=== PATIENT | male | born 1995 | race Two or more races ===

== ENCOUNTER 2017-10-31 03:11 | Emergency (ER) | payer MEDICAID, OTHER ==
[~2017-10-31] VITALS: Ht 185.4 cm; Wt 154.2 kg
[2017-10-31] MEDS ORDERED: Mylanta II UD 30ml ORAL ONE (04:00)
[2017-10-31] MEDS ORDERED: Lidocaine 2% Visc 15ml soln ORAL ONE (04:00)
--- NOTE | 2017-10-31 04:02 | Emergency Room Report ---
History of Present Illness General Chief Complaint: Abdominal Pain Source: Patient Present Illness HPI Is a 22-year-old male with no past medical history. He presents with chief complaint of epigastric pain. Onset for 24 hours now. On and off. His most recent pain been constant for about 4 hours. Worse with eating. Pain to the back. At its peak, pain is 10 out of 10. Now 6 out of 10. Not taking anything for it. Allergies: Coded Allergies: No Known Allergies (Unverified , 10/31/17) Patient History Past Medical History: none, see triage record, old chart reviewed Past Surgical History: none Pertinent Family History: none Social History: Denies: smoking Immunizations: other Reviewed Nursing Documentation: PMH: Agreed; PSxH: Agreed Nursing Documentation-PMH Past Medical History: No Stated History Review of Systems Eye: Denies: eye pain, blurred vision ENT: Denies: ear pain, nose congestion, throat swelling Respiratory: Denies: cough, shortness of breath Cardiovascular: Denies: chest pain, palpitations Gastrointestinal: Reports: abdominal pain, nausea, vomiting; Denies: diarrhea Musculoskeletal: Denies: back pain, joint pain Skin: Denies: rash Neurological: Denies: headache, numbness Endocrine: Denies: increased thirst, increased urine Hematologic/Lymphatic: Denies: easy bruising All Other Systems: negative except mentioned in HPI Physical Exam Vital Signs Date Time Temp Pulse Resp B/P (MAP) Pulse Ox O2 Delivery O2 Flow Rate FiO2 10/31/17 03:37 97.8 68 16 106/62 100 Room Air 97.9 vitals normal Sp02 EP Interpretation: reviewed, normal General Appearance: well appearing, no apparent distress, alert Head: normocephalic, atraumatic Eyes: bilateral eye PERRL, bilateral eye EOMI ENT: hearing grossly normal, normal pharynx Neck: full range of motion, supple, no meningismus Respiratory: chest non-tender, lungs clear, normal breath sounds Cardiovascular #1: regular rate, rhythm, no murmur Gastrointestinal: normal bowel sounds, non tender, no mass, no organomegaly, no bruit, non-distended Musculoskeletal: back normal, gait/station normal, normal range of motion Psychiatric: mood/affect normal Skin: warm/dry Medical Decision Making Diagnostic Impression: Primary Impression: Cholelithiasis Qualified Codes: K80.20 - Calculus of gallbladder without cholecystitis without obstruction Additional Impression: Abdominal pain Qualified Codes: R10.13 - Epigastric pain ER Course Patient presents with abdominal pain. My bedside ultrasound showed a large gallstone at the neck of the gallbladder. Negative Silver sign. No evidence of acute abdomen. No evidence of infection. No evidence of pancreatitis. We' ll discharge home. Lab Results Impression labs with abnormal LFTs Last Vital Signs Date Time Temp Pulse Resp B/P (MAP) Pulse Ox O2 Delivery O2 Flow Rate FiO2 10/31/17 03:37 97.8 68 16 106/62 100 Room Air 97.9 Status: improved Disposition: HOME, SELF-CARE Condition: Stable Scripts Omeprazole Magnesium (PRILOSEC OTC) 20 Mg Tablet. 20 MG ORAL DAILY, #30 TAB Prov: BULMARO DOS SANTOS M.D. 10/31/17 Hydrocodone/Acetaminophen 5-325* (HYDROCODONE/ACETAMINOPHEN 5-325*) 1 Each Tablet 1 TAB ORAL Q6H PRN for For Pain, #20 TAB 0 Refills Prov: BULMARO DOS SANTOS M.D. 10/31/17 Referrals: [facility],REFERRING (PCP) Additional Instructions: Follow-up your in 2-3 days if not better. You may knee referred to see a surgeon for gallstone. Return if worse. BULMARO DOS SANTOS M.D. Oct 31, 2017 04:02
[2017-10-31 04:10] VITALS: BP 106/62
[2017-10-31 04:27] LABS: BASOPHILS % (AUTO) 0.3 % (0.0-2.0); EOSINOPHILS % (AUTO) 0.7 % (0.0-3.0); HEMATOCRIT 41.9 % (42.0-52.0); HEMOGLOBIN 14.1 G/DL (14.2-18.0); LYMPHOCYTES % (AUTO) 13.6 % (20.0-45.0); MEAN CORPUSCULAR VOLUME 86 FL (80-99); MONOCYTES % (AUTO) 4.3 % (1.0-10.0); NEUTROPHILS % (AUTO) 81.1 % (45.0-75.0); PLATELET COUNT 298 K/UL (150-450); RED BLOOD COUNT 4.85 M/UL (4.70-6.10); RED CELL DISTRIBUTION WIDTH 10.2 % (11.6-14.8); WHITE BLOOD COUNT 9.9 K/UL (4.8-10.8)
[2017-10-31 04:38] LABS: ANION GAP 5 mmol/L (5-15); BLOOD UREA NITROGEN 13 mg/dL (7-18); CALCIUM 9.3 MG/DL (8.5-10.1); CARBON DIOXIDE 31 MMOL/L (21-32); CHLORIDE 104 MMOL/L (98-107); POTASSIUM 4.2 MMOL/L (3.5-5.1); SODIUM 140 MMOL/L (136-145)
[2017-10-31 04:49] LABS: ALANINE AMINOTRANSFERASE 246 U/L (12-78); ALBUMIN 4.1 G/DL (3.4-5.0); ALKALINE PHOSPHATASE 123 U/L (46-116); ASPARTATE AMINO TRANSFERASE 238 U/L (15-37); BILIRUBIN,TOTAL 1.2 MG/DL (0.2-1.0)
[2017-10-31 04:51] LABS: BILIRUBIN,DIRECT 0.8 MG/DL (0.0-0.3)
[2017-10-31] MEDS ORDERED: PRILOSEC OTC20 MG ORAL (05:10)
[2017-10-31] MEDS ORDERED: HYDROCODON-ACE1 EA15 ORAL (05:10)
[2017-10-31 05:18] VITALS: BP 145/61
[2017-10-31 05:20] VITALS: BP 145/61
== END 2017-10-31 05:20 | disposition home or self-care (01) ==
LOC: EMR 03:39
DX: K80.20 Calculus of gallbladder without cholecystitis without obstruction (principal)
CPT/HCPCS: 36415; 80053; 82248; 83690; 85025; 96374; 99284

== ENCOUNTER 2017-11-20 00:40 | Emergency (ER) | payer MEDICAID, OTHER ==
[~2017-11-20] VITALS: Ht 182.9 cm; Wt 117.9 kg
[~2017-11-20 00:40] MED LIST: HYDROCODON-ACE1 EA15 ORAL; PRILOSEC OTC20 MG ORAL
[2017-11-20] MEDS ORDERED: Ketorolac 30mg Inj IM ONE (01:00)
--- NOTE | 2017-11-20 01:34 | Emergency Room Report ---
History of Present Illness General Chief Complaint: Abdominal Pain Source: Patient Present Illness HPI 22M came to ED for <one hour RUQ crampy pain. Feels same as few weeks ago. No vomiting, no fever, no dysuria. He was here three weeks ago and had bedside US showing one large gallstone. Pt. did f/u PMD and did have surgery consult and no plan yet. No change in urine, bowels. Allergies: Coded Allergies: No Known Allergies (Unverified , 10/31/17) Review of Systems Constitutional: Reports: no symptoms Eye: Reports: no symptoms ENT: Reports: no symptoms Respiratory: Reports: no symptoms Cardiovascular: Reports: no symptoms Gastrointestinal: Reports: see HPI, abdominal pain Genitourinary: Reports: no symptoms Musculoskeletal: Reports: no symptoms Skin: Reports: no symptoms Psychiatric: Reports: no symptoms Neurological: Reports: no symptoms Endocrine: Reports: no symptoms Hematologic/Lymphatic: Reports: no symptoms Allergic: Reports: no symptoms All Other Systems: negative except mentioned in HPI Physical Exam Vital Signs Date Time Temp Pulse Resp B/P (MAP) Pulse Ox O2 Delivery O2 Flow Rate FiO2 11/20/17 00:46 98.0 88 16 140/80 98 Room Air 98.1 Sp02 EP Interpretation: reviewed, normal General Appearance: normal inspection, well appearing, no apparent distress, alert, GCS 15, non-toxic Head: normocephalic, atraumatic Eyes: bilateral eye normal inspection - no jaundice, bilateral eye PERRL, bilateral eye EOMI ENT: normal ENT inspection, hearing grossly normal, normal pharynx, no angioedema, normal voice, moist mucus membranes Neck: normal inspection, full range of motion, supple, no meningismus, no bony tend Respiratory: normal inspection, lungs clear, normal breath sounds, no rhonchi, no respiratory distress, no retraction, no accessory muscle use, no wheezing Cardiovascular #1: normal inspection, regular rate, rhythm, no edema Gastrointestinal: normal inspection, normal bowel sounds, non tender, soft, no mass, non-distended, other - nontender, negative Silver's, overweight Musculoskeletal: gait/station normal, normal range of motion Neurologic: normal inspection, alert, oriented x3, responsive, motor strength/ tone normal Psychiatric: normal inspection, judgement/insight normal, memory normal Suicide Risk Assessment: Suicidal Ideation: No Had intent to initiate attempt: No Pt's plan for suicide attempt: No Has means to complete attempt: No Skin: normal inspection, normal color, no rash, warm/dry Medical Decision Making Diagnostic Impression: Primary Impression: Biliary colic ER Course This patient has same symptom as three weeks ago. It is brief. He has no pathologic signs on exam, nontender, no jaundice. He is in the process of having this issue settled. No further w/u needed at this time. Last Vital Signs Date Time Temp Pulse Resp B/P (MAP) Pulse Ox O2 Delivery O2 Flow Rate FiO2 11/20/17 01:08 98.0 11/20/17 00:46 88 16 140/80 98 Room Air Patient Instructions: Abdominal Pain, Adult, Biliary Colic Montrell Villafana M.D. Nov 20, 2017 01:33
[2017-11-20 01:57] VITALS: BP 112/43
[2017-11-20 02:05] VITALS: BP 112/43
== END 2017-11-20 02:05 | disposition home or self-care (01) ==
LOC: EMR 01:58
DX: K80.50 Calculus of bile duct without cholangitis or cholecystitis without obstruction (principal)
CPT/HCPCS: 96372; 99283; J1885